=== PATIENT | male | born 1985 | race Caucasian/White ===

== ENCOUNTER 2020-08-05 12:57 | Outpatient (CLI) | payer OTHER, SELFPAY ==
--- NOTE | 2020-08-10 15:48 | WPDPFTINT ---
PFT Interpretation PFT Interpretation: DOS: 08/05/2020 REQUESTING: Dr Leo REASON FOR TESTING: Dyspnea PULMONARY FUNCTION TESTS Results are reliable and reproducible. Spirometry: FEV1 89%, normal. FVC 86%, normal. FEV1% is normal. No change with bronchodilator. Lung volumes: TLC 93%. RV 99%, normal. No air trapping. Normal airway resistance. Diffusion: DLCO 96%, normal. Flow volume loop: Normal. IMPRESSION: Normal study. No change with bronchodilator. Carlie Lambert MD
== END 2020-08-05 12:58 | disposition home or self-care (01) ==
LOC: ANHPFT 12:59
PROVIDERS: Visit Provider Internal Medicine Critical Care Medicine
DX: R06.00 Dyspnea, unspecified (principal)
CPT/HCPCS: 94060; 94726; 94729

== ENCOUNTER 2020-11-01 12:26 | Outpatient (CLI) | payer OTHER, SELFPAY ==
--- NOTE | 2020-11-02 12:45 | WPDPFTINT ---
PFT Interpretation Methacholine challenge testing 11/01/20. Baseline full PFTs were done 08-05-20 and found normal flows and volumes. With this methacholine challenge test, increasing concentrations of methacholine were administered. At level 5 (10 mg), there was a 26% decline in FEV1 relative to baseline. This nearly entirely reversed with subsequent albuterol. This is a positive methacholine challenge test suggesting bronchoreactivity. Yonatan Vera MD MSc FACP FCCP
== END 2020-11-01 12:27 | disposition home or self-care (01) ==
PROVIDERS: Visit Provider Internal Medicine Critical Care Medicine
DX: R06.00 Dyspnea, unspecified (principal); R94.2 Abnormal results of pulmonary function studies
CPT/HCPCS: 94070; J7674